=== PATIENT | female | born 1990 | race Caucasian/White ===

== ENCOUNTER 2019-08-27 17:48 | Emergency (ER) | payer BC, OTHER ==
[2019-08-27 18:24] VITALS: O2SAT 96
--- NOTE | 2019-08-27 18:24 | ERPHSYRPT ---
- History of Present Illness Time Seen by Provider: 08/27/19 18:20 Source: patient, family Exam Limitations: no limitations Patient Subjective Stated Complaint: states was feeding roosters and one attacked her on right lower leg. unsure if she twisted her ankle but is having moderate pain and swelling to right ankle Triage Nursing Assessment: to room per w/c. skin w/d, color normal, resp easy. patient has moderate swelling to right ankle. unable to bear weight at this time. also has two small puncture wounds to right lower leg. ice pack applied and right lower leg elevated. Physician History: a rooster attack her while she was feeding her chicken. Has 2 puncture wound on the right ankle and right lower leg anteriorly. She is not sure if she fell but has a severe pain on the right with malleolus area with swelling and tenderness. Also has some pain in the right foot. Method of Injury: twisted Occurred: just prior to arrival Quality: constant Severity of Pain-Max: severe Severity of Pain-Current: severe Lower Extremities Pain: foot: right, ankle: right Modifying Factors: Improves With: movement Associated Symptoms: unable to bear weight, No dizzy, No fainted, No seizure, No snapping sensation, No popping sensation Allergies/Adverse Reactions: latex Allergy (Verified 08/27/19 18:59) sulfamethoxazole [From Bactrim] Allergy (Verified 08/27/19 18:59) trimethoprim [From Bactrim] Allergy (Verified 08/27/19 18:59) Home Medications: Alprazolam 1 mg [Xanax 1 mg] 1 mg PO HS 08/27/19 [History] Sertraline HCl 50 mg [Zoloft 50 mg Tablet] 50 mg PO DAILY 08/27/19 [History] Hx Tetanus, Diphtheria Vaccination/Date Given: No Hx Influenza Vaccination/Date Given: No Hx Pneumococcal Vaccination/Date Given: No - Review of Systems Constitutional: No Fever, No Chills Eyes: No Symptoms Ears, Nose, & Throat: No Symptoms Respiratory: No Cough, No Dyspnea Cardiac: No Chest Pain, No Edema, No Syncope Abdominal/Gastrointestinal: No Abdominal Pain, No Nausea, No Vomiting, No Diarrhea Genitourinary Symptoms: No Dysuria Musculoskeletal: Other (right ankle: Painful, tender, painful range of motion. The bite jorge l on the ventral aspect of the right ankle and the right lower leg. mild right foot pain.), No Back Pain, No Neck Pain Skin: Other (bite jorge l on the right foot in the right lower leg.), No Rash Neurological: No Dizziness, No Focal Weakness, No Sensory Changes Psychological: No Symptoms Endocrine: No Symptoms All Other Systems: Reviewed and Negative - Past Medical History Pertinent Past Medical History: Yes Psycho-Social History: Anxiety, Depression - Past Surgical History Past Surgical History: Yes Female Surgical History: Section - Social History Smoking Status: Never smoker Exposure to second hand smoke: No Drug Use: none Patient Lives Alone: No - Female History Hx Last Menstrual Period: one year ago Hx Now: (on control) - Nursing Vital Signs Nursing Vital Signs: Initial Vital Signs Temperature 97.8 F 08/27/19 18:14 Pulse Rate 74 08/27/19 18:14 Respiratory Rate 16 08/27/19 18:14 Blood Pressure 129/75 08/27/19 18:14 O2 Sat by Pulse Oximetry 96 08/27/19 18:14 Pain Scale Pain Intensity 6 - Physical Exam General Appearance: alert Eyes, Ears, Nose, Throat Exam: moist mucous membranes Neck Exam: non-tender, supple Cardiovascular/Respiratory Exam: chest non-tender, normal breath sounds, regular rate/rhythm, no respiratory distress Gastrointestinal/Abdominal Exam: non-tender, guarding Back Exam: normal inspection, No vertebral tenderness Ankle Exam: right ankle: abrasions/laceration, bone tenderness, limited range of motion, pain, soft tissue tenderness, swelling, other (right ankle: Painful, tender, painful range of motion. The bite jorge l on the ventral aspect of the right ankle and the right lower leg. mild right foot pain.) Foot Exam: right foot: pain Neuro/Tendon Exam: normal sensation, normal motor functions Mental Status Exam: alert, oriented x 3, cooperative Skin Exam: normal color, warm, dry, other (2 bite jorge l on the right ankle and the right lower leg) SpO2 Interpretation: normal SpO2: 96 O2 Delivery: Room Air - Radiology Exams Ankle X-ray Interpretation: Interpreted by me, Negative Foot X-ray Interpretation: Interpreted by me, Negative Ordered Tests: Active Orders 24 hr Category Date Time Status Eriberto Bandage Application -[facility] STAT Care 08/27/19 20:10 Ordered Crutches STAT Care 08/27/19 20:10 Ordered Dressing Care ROUTINE Care 08/27/19 18:30 Active Dressing Care ROUTINE Care 08/27/19 20:10 Ordered ANKLE (3 VIEWS) Stat Exams 08/27/19 19:13 Taken FOOT (2 VIEWS) Stat Exams 08/27/19 19:14 Taken Medication Summary Discontinued Medications Generic Name Dose Route Start Last Admin Trade Name Reggie PRN Reason Stop Dose Admin Hydrocodone Bitart/Acetaminophen 1 tab 08/27/19 18:29 08/27/19 19:17 [place] 5/325 Mg PO 08/27/19 18:30 1 tab STAT ONE Administration Hydrocodone Bitart/Acetaminophen Confirm 08/27/19 19:00 [place] 5/325 Mg Administered 08/27/19 19:01 Dose 1 tab .ROUTE .STK-MED ONE Bacitracin Zinc 0.9 gm 08/27/19 18:30 08/27/19 19:22 Baciguent Packet TP 08/27/19 18:31 0.9 gm STAT ONE Administration Bacitracin Zinc Confirm 08/27/19 19:01 Baciguent Packet Administered 08/27/19 19:02 Dose 1 gm .ROUTE .STK-MED ONE Diphtheria/Tetanus/Acell Pertussis 0.5 ml 08/27/19 18:30 08/27/19 19:21 Adacel Vial IM 08/27/19 18:31 0.5 ml .ONCE ONE Administration Diphtheria/Tetanus/Acell Pertussis Confirm 08/27/19 18:59 Adacel Vial Administered 08/27/19 19:00 Dose 0.5 ml IM .STK-MED ONE Ketorolac Tromethamine 30 mg 08/27/19 18:29 08/27/19 19:22 Toradol 30 Mg Injection IM 08/27/19 18:30 30 mg STAT ONE Administration Ketorolac Tromethamine Confirm 08/27/19 19:00 Toradol 30 Mg Injection Administered 08/27/19 19:01 Dose 30 mg .ROUTE .STK-MED ONE - Progress Progress: improved Progress Note: it was patient follow up with PCP especially on the x-ray report and any signs of infection. No Rabies vaccine indicated at this point. 08/27/19 20:12 Counseled pt/family regarding: diagnosis, need for follow-up, rad results - Departure Departure Disposition: Home Clinical Impression: Ankle sprain Qualifiers: Encounter type: initial encounter Involved ligament of ankle: other ligament Laterality: right Qualified Code(s): S93.491A - Sprain of other ligament of right ankle, initial encounter Contusion of right foot Qualifiers: Encounter type: initial encounter Qualified Code(s): S90.31XA - Contusion of right foot, initial encounter Condition: Stable Critical Care Time: No Referrals: ALICIA TALAMANTES [Primary Care Provider] - Instructions: Ankle Sprain (DC), Contusion (DC), Animal Bites (DC) Prescriptions: Cephalexin Mh 500 mg [Keflex 500 mg] 500 mg PO BID 7 Days #14 capsule
[2019-08-27] MEDS ORDERED: NORCO 5/325 MG PO ONE (18:29)
[2019-08-27] MEDS ORDERED: TORAdol 30 mg Injection IM ONE (18:29)
[2019-08-27] MEDS ORDERED: BACIGUENT PACKET TP ONE ×2 (18:30→20:10)
[2019-08-27] MEDS ORDERED: Adacel Vial IM ONE ×2 (18:30→18:59)
[2019-08-27] MEDS ORDERED: NORCO 5/325 MG ONE (19:00)
[2019-08-27] MEDS ORDERED: TORAdol 30 mg Injection ONE (19:00)
[2019-08-27] MEDS ORDERED: BACIGUENT PACKET ONE (19:01)
[2019-08-27 21:13] VITALS: BP 128/68; PULSE 70
--- NOTE | 2019-08-28 08:43 | XRAY ---
Indication: Pain following injury. Comparison: None 3 views of the right ankle demonstrates normal bones, articulation, and soft tissues.
--- NOTE | 2019-08-28 08:43 | XRAY ---
Indication: Pain following injury. Comparison: None 2 nonweightbearing views of the right foot demonstrates normal bones, articulation, and soft tissues.
== END 2019-08-27 21:10 | disposition home or self-care (01) ==
LOC: ED 17:48
DX: S93.491A Sprain of other ligament of right ankle, initial encounter (principal); S90.31XA Contusion of right foot, initial encounter; M79.671 Pain in right foot; W50.2XXA Accidental twist by another person, initial encounter; Y93.K9 Activity, other involving animal care; S91.031A Puncture wound without foreign body, right ankle, initial encounter
CPT/HCPCS: 73610; 73620; 90471; 90715; 96372; 99284; J1885; A9270-GY

== ENCOUNTER 2019-12-23 04:31 | Emergency (ER) | payer BC ==
[2019-12-23] MEDS ORDERED: BABY ASPIRIN 81 MG CHEW PO ONE (04:51)
[2019-12-23] MEDS ORDERED: Sodium Chloride 0.9% 1000 ML 1,000 ML IV STA (04:51)
[2019-12-23] MEDS ORDERED: ATARAX 25 MG PO ONE (04:52)
--- NOTE | 2019-12-23 05:00 | ERPHSYRPT ---
- History of Present Illness Time Seen by Provider: 12/23/19 04:38 Source: patient Exam Limitations: no limitations Patient Subjective Stated Complaint: PT TO ER WITH COMPLAINTS OF ANXIETY ATTACK/ PANIC ATTACKS THAT STARTED 7 MONTHS AGO AFTER HER SON WAS BORN. PT STATES SHE WAS ON MEDS AND THEY WERE HELPING. PT STATES THEY STARTED BACK UP SUNDAY EARLY AM. PT STATES IT COMES ON WHEN SHE IS SLEEPING. PT STATES SHE WAKES UP FEELING SOB AND PANICKED. Triage Nursing Assessment: PT A&OX4. PT APPEARS TO BE IN NO DISTRESS. Physician History: Patient is here with what she says is an anxiety attack. She states that she has chest pressure radiating into her back. She has no falls or trauma. No family history of aortic dissection. She has no personal history of Marfan's or other known elasticity disorders. No family history of sudden cardiac . Patient states that her anxiety started approximately 7 months ago. She has no recent falls or trauma. Started getting worse approximately 24 hours ago. She did not take her home medication until last night. She was not able to follow-up with her PCP. She states that she takes Xanax and Zoloft for her depression and anxiety attacks. Location: chest Quality: pressure Radiation: into back Severity: moderate Duration: yesterday morning Timing: gradual Modifying factors/associated signs and symptoms: home medication Aspirin Treatment Today: no aspirin today Allergies/Adverse Reactions: latex Allergy (Intermediate, Verified 12/23/19 04:54) Swelling sulfamethoxazole [From Bactrim] Allergy (Intermediate, Verified 12/23/19 04:54) Swelling trimethoprim [From Bactrim] Allergy (Intermediate, Verified 12/23/19 04:54) Swelling Home Medications: Alprazolam 1 mg [Xanax 1 mg] 1 mg PO HS 08/27/19 [History] Sertraline HCl 50 mg [Zoloft 50 mg Tablet] 50 mg PO DAILY 08/27/19 [History] Hx Tetanus, Diphtheria Vaccination/Date Given: Yes Hx Influenza Vaccination/Date Given: Yes Hx Pneumococcal Vaccination/Date Given: No Immunizations Up to Date: Yes Travel Risk - International Travel Have you traveled outside of the country in past 3 weeks: No (N) Have you or anyone close to you been diagnosed with or: No Do your reside in a community with a known COVID-19 case?: Yes If Yes where:: [facility] - Coronavirus Screening Has patient experienced Coronavirus symptoms: No - Review of Systems Constitutional: No Fever, No Chills Eyes: No Symptoms Ears, Nose, & Throat: No Symptoms Respiratory: No Cough, No Dyspnea Cardiac: Chest Pain, No Edema, No Syncope Abdominal/Gastrointestinal: No Abdominal Pain, No Nausea, No Vomiting, No Diarrhea Genitourinary Symptoms: No Dysuria Musculoskeletal: No Back Pain, No Neck Pain Skin: No Rash Neurological: No Dizziness, No Focal Weakness, No Sensory Changes Psychological: No Symptoms, Anxiety Endocrine: No Symptoms All Other Systems: Reviewed and Negative - Past Medical History Pertinent Past Medical History: Yes Psycho-Social History: Anxiety, Depression, Panic Disorder - Past Surgical History Past Surgical History: Yes Female Surgical History: Section - Social History Smoking Status: Never smoker Exposure to second hand smoke: No Drug Use: none Patient Lives Alone: No - Female History Hx Last Menstrual Period: 12/19/2019 Hx Now: No - Nursing Vital Signs Nursing Vital Signs: Initial Vital Signs Temperature 97.9 F 12/23/19 04:38 Pulse Rate 90 12/23/19 04:38 Respiratory Rate 18 12/23/19 04:38 Blood Pressure 148/86 12/23/19 04:38 O2 Sat by Pulse Oximetry 97 12/23/19 04:38 Pain Scale Pain Intensity 5 - Physical Exam General Appearance: no apparent distress, alert Eye Exam: PERRL/EOMI, eyes nml inspection Ears, Nose, Throat Exam: normal ENT inspection, moist mucous membranes Neck Exam: normal inspection, non-tender, supple Respiratory Exam: normal breath sounds, lungs clear, No respiratory distress Cardiovascular Exam: regular rate/rhythm, normal heart sounds, No edema Gastrointestinal/Abdomen Exam: soft, No tenderness, No mass Back Exam: normal inspection, No CVA tenderness, No vertebral tenderness Extremity Exam: normal inspection, normal range of motion Neurologic Exam: alert, oriented x 3, cooperative, normal mood/affect, nml cerebellar function, sensation nml, No motor deficits Skin Exam: normal color, warm, dry Lymphatic Exam: No adenopathy SpO2: 97 - Course Nursing assessment & vital signs reviewed: Yes EKG Interpreted by Me: RATE, Sinus Rhythm Ordered Tests: Active Orders 24 hr Category Date Time Status EKG-ER Only STAT Care 12/23/19 04:51 Active IV Insertion STAT Care 12/23/19 04:51 Active CHEST 2 VIEWS (PA AND LAT) Stat Exams 12/23/19 04:52 Taken CHEST WITH CONTRAST [CT] Stat Exams 12/23/19 05:31 Taken CBC W DIFF Stat Lab 12/23/19 05:04 Completed CMP Stat Lab 12/23/19 05:04 Completed D-DIMER QUANTITATIVE Stat Lab 12/23/19 05:04 Completed HCG QUALITATIVE,SERUM Stat Lab 12/23/19 05:04 Completed Manual Differential NC Stat Lab 12/23/19 05:04 Completed NT PRO BNP Stat Lab 12/23/19 05:04 Completed TROPONIN Q3H Lab 12/23/19 05:04 Completed TROPONIN Q3H Lab 12/23/19 08:00 Ordered TROPONIN Q3H Lab 12/23/19 11:00 Ordered TROPONIN Q3H Lab 12/23/19 14:00 Ordered TROPONIN Q3H Lab 12/23/19 17:00 Ordered Medication Summary Discontinued Medications Generic Name Dose Route Start Last Admin Trade Name Freq PRN Reason Stop Dose Admin Aspirin 324 mg 12/23/19 04:51 12/23/19 05:08 Baby Aspirin 81 Mg Chew PO 12/23/19 04:52 324 mg STAT ONE Administration Aspirin Confirm 12/23/19 05:06 Baby Aspirin 81 Mg Chew Administered 12/23/19 05:07 Dose 324 mg .ROUTE .STK-MED ONE Hydroxyzine HCl 25 mg 12/23/19 04:52 12/23/19 05:07 Atarax 25 Mg PO 12/23/19 04:53 25 mg STAT ONE Administration Hydroxyzine HCl Confirm 12/23/19 05:06 Atarax 25 Mg Administered 12/23/19 05:07 Dose 25 mg .ROUTE .STK-MED ONE Sodium Chloride 1,000 mls @ 999 mls/hr 12/23/19 04:51 12/23/19 05:24 Sodium Chloride 0.9% 1000 Ml IV 12/23/19 05:51 999 mls/hr .Q1H1M STA Administration Lab/Rad Data: Laboratory Result Diagrams 12/23/19 05:04 12/23/19 05:04 Laboratory Results 12/23/19 12/23/19 12/23/19 Range/Units 05:04 05:04 05:04 WBC (4.0-10.5) K/mm3 RBC (4.1-5.4) M/mm3 Hgb (12.0-16.0) gm/dl Hct (35-47) % MCV (78-100) fl MCH (26-32) pg MCHC (32-36) g/dl RDW (11.5-14.0) % Plt Count (150-450) K/mm3 MPV (7.5-11.0) fl D-Dimer 3916 H* (215-500) ng/mL Sodium (137-145) mmol/L Potassium (3.5-5.1) mmol/L Chloride (98-107) mmol/L Carbon Dioxide (22-30) mmol/L Anion Gap (5-15) MEQ/L BUN (7-17) mg/dL Creatinine (0.52-1.04) mg/dL Estimated GFR ML/MIN Glucose (74-106) mg/dL Calcium (8.4-10.2) mg/dL Total Bilirubin (0.2-1.3) mg/dL AST (14-36) U/L ALT (0-35) U/L Alkaline Phosphatase (38-126) U/L Troponin I < 0.012 (0.000-0.034) ng/mL NT-Pro-B Natriuret Pep (0-450) pg/mL Serum Total Protein (6.3-8.2) g/dL Albumin (3.5-5.0) g/dL Serum , Qual NEGATIVE (Negative) 12/23/19 12/23/19 Range/Units 05:04 05:04 WBC 9.1 (4.0-10.5) K/mm3 RBC 4.52 (4.1-5.4) M/mm3 Hgb 14.5 (12.0-16.0) gm/dl Hct 40.7 (35-47) % MCV 90.0 (78-100) fl MCH 32.1 H (26-32) pg MCHC 35.6 (32-36) g/dl RDW 13.7 (11.5-14.0) % Plt Count 376 (150-450) K/mm3 MPV 9.2 (7.5-11.0) fl D-Dimer (215-500) ng/mL Sodium 137 (137-145) mmol/L Potassium 3.9 (3.5-5.1) mmol/L Chloride 103 (98-107) mmol/L Carbon Dioxide 23 (22-30) mmol/L Anion Gap 14.7 (5-15) MEQ/L BUN 14 (7-17) mg/dL Creatinine 0.59 (0.52-1.04) mg/dL Estimated GFR > 60.0 ML/MIN Glucose 97 (74-106) mg/dL Calcium 9.4 (8.4-10.2) mg/dL Total Bilirubin 0.50 (0.2-1.3) mg/dL AST 46 H (14-36) U/L ALT 57 H (0-35) U/L Alkaline Phosphatase 121 (38-126) U/L Troponin I (0.000-0.034) ng/mL NT-Pro-B Natriuret Pep 38.2 (0-450) pg/mL Serum Total Protein 8.2 (6.3-8.2) g/dL Albumin 4.4 (3.5-5.0) g/dL Serum , Qual (Negative) - Progress Progress: improved Air Movement: good Progress Note: 12/23/19 04:59 Differential diagnosis includes SD, STEMI, pulmonary embolism, aortic dissection , pneumothorax, other infection - We'll obtain basic labs, fluids, EKG, troponin, chest x-ray - I feel comfortable with one time negative troponin given symptoms have improved and started greater then 6 hours ago. - EKG shows no ST changes - my read. See full read below. - O2 saturations consistently greater than 95%. - CXR shows no pneumonia, pneumothorax - my read - no other obvious lab abnormalities 12/23/19 05:58 D-dimer was elevated. Therefore, we will obtain a CTA of the chest with contrast looking for pulmonary embolism versus aortic dissection. Otherwise labs have returned unremarkable. Troponin negative. Patient feeling improved with Atarax in the emergency department. 12/23/19 06:45 CTA returned negative without signs of pulmonary embolism or aortic dissection. Patient does have some gallstones. Very minor elevation of her LFTs with gallstones today. She may benefit from an outpatient ultrasound or HIDA scan. I did discuss this with the patient. She will follow-up with general surgery or her PCP to order this. Otherwise, labs unremarkable. Patient will need close follow-up with PCP. Return here for new or changing symptoms. Blood Culture(s) Obtained: No Antibiotics given: No Counseled pt/family regarding: lab results, diagnosis, need for follow-up - Departure Departure Disposition: Home Clinical Impression: Anxiety Condition: Stable Critical Care Time: No Referrals: ALICIA TALAMANTES [Primary Care Provider] - Instructions: Anxiety, Adult (DC) Prescriptions: Hydroxyzine HCl 25 mg [Atarax 25 mg] 25 mg PO Q6H PRN #12 tablet PRN Reason: Itching
[2019-12-23] MEDS ORDERED: BABY ASPIRIN 81 MG CHEW ONE (05:06)
[2019-12-23] MEDS ORDERED: ATARAX 25 MG ONE (05:06)
[2019-12-23 05:14] LABS: Hematocrit 40.7 % (35-47); Hemoglobin 14.5 gm/dl (12.0-16.0); Mean Corpuscular Hemoglobin 32.1 pg (26-32); Mean Corpuscular Hgb Concent. 35.6 g/dl (32-36); Mean Platelet Volume 9.2 fl (7.5-11.0); Platelet Count 376 K/mm3 (150-450); Red Blood Count 4.52 M/mm3 (4.1-5.4); Red Cell Distribution Width 13.7 % (11.5-14.0); White Blood Count 9.1 K/mm3 (4.0-10.5)
[2019-12-23 05:36] LABS: ALBUMIN 4.4 g/dL (3.5-5.0); ALKALINE PHOSPHATASE 121 U/L (38-126); ANION GAP 14.7 MEQ/L (5-15); BLOOD UREA NITROGEN 14 mg/dL (7-17); CHLORIDE 103 mmol/L (98-107); Calcium 9.4 mg/dL (8.4-10.2); Carbon Dioxide 23 mmol/L (22-30); Creatinine 1 0.59 mg/dL (0.52-1.04); Glucose 97 mg/dL (74-106); NT PRO BNP 38.2 pg/mL (0-450); Potassium 3.9 mmol/L (3.5-5.1); SGOT/AST 46 U/L (14-36); SGPT/ALT 57 U/L (0-35); SODIUM 137 mmol/L (137-145); Total Protein 8.2 g/dL (6.3-8.2)
[2019-12-23 05:42] VITALS: BP 146/89
[2019-12-23 06:15] VITALS: PULSE 70
[2019-12-23 06:47] VITALS: O2SAT 97
[2019-12-23 07:15] LABS: Lymphocytes 27 % (24-44); Monocyte 9 % (0.0-12.0); Neutrophils 64 % (36.0-66.0); Platelet Estimate NORMAL (NORMAL); Total Cells Counted 100
--- NOTE | 2019-12-23 09:10 | XRAY ---
Indication: Chest pain. Comparison: None PA/lateral chest demonstrates normal heart and lungs. Bony thorax intact with minimal scoliosis.
--- NOTE | 2019-12-23 10:02 | XRAY ---
Indication: Chest pain/pressure and elevated d-dimer. Multiple contiguous axial images obtained through the chest using 80 cc Isovue 370 contrast. Comparison: None Heart is not enlarged. Aorta is normal in course and caliber. No pathologic mediastinal/hilar lymphadenopathy. No central pulmonary embolus. Lungs demonstrates minimal bilateral dependent atelectasis. No suspicious pulmonary mass, infiltrate, or effusion. Bony thorax intact. Limited upper abdomen demonstrates mild fatty liver, tiny gallstones/gravel, and 12.5 cm splenomegaly. Impression: 1. CT chest with contrast exam is negative. No central pulmonary embolus. 2. Incidental fatty liver, tiny gallstones/gravel, and splenomegaly. Comment: Preliminary interpretation was made by C. No critical discrepancy.
== END 2019-12-23 07:03 | disposition home or self-care (01) ==
LOC: ED 04:31
DX: F41.9 Anxiety disorder, unspecified (principal); R07.89 Other chest pain
CPT/HCPCS: 36000; 36415; 71046; 71260; 80053; 81025; 83880; 84484; 85025; 85379; 93005; 96360; 96374; 99284; A9270-GY